=== PATIENT | female | born 1985 | race Caucasian/White ===

== ENCOUNTER → 2020-08-04 15:16 | Outpatient (ROUT) | payer MEDICAID, SELFPAY | PROVIDERS: Visit Provider Dermatology | DX: L02.424 Furuncle of left upper limb (principal) | CPT/HCPCS: 87070; 87075; 87205 ==

== ENCOUNTER 2021-09-26 14:44 | Emergency (ER) | payer MEDICAID, SELFPAY ==
[2021-09-26 14:54] VITALS: O2SAT 100
[2021-09-26 14:55] VITALS: BP 105/59; PULSE 72; RESP 18; O2SAT 99
[2021-09-26 15:00] VITALS: BP 110/67; PULSE 71; RESP 18; O2SAT 99
[2021-09-26 15:01] VITALS: BP 105/59; PULSE 68; RESP 18; TEMP 36.4; O2SAT 100; BMI 21.9
--- NOTE | 2021-09-26 15:08 | ED.URI ---
HPI - URI/Sore Throat General Chief Complaint: Upper Respiratory Symptoms Stated Complaint: cant swallow home test says covid+,ears hurt Time Seen by Provider: 09/26/21 14:57 Source: patient Mode of arrival: Ambulatory History of Present Illness HPI Narrative: 36-year-old female nonsmoker with noncontributory medical history presents with 5-7 days of various upper respiratory symptoms including nasal congestion, bilateral ear pain, sore throat and difficulty swallowing. She had a headache for a few days leading into this but that has since resolved. She denies much in way of cough and has no shortness of breath. She denies any chest pain. She has no GI symptoms such as nausea, vomiting or diarrhea. She took a home COVID test and was found to be positive. She is not immunized. Review of Systems Review of Systems Narrative: GENERAL: see HPI HEENT: see HPI RESPIRATORY: Denies dyspnea, cough, wheezing, hemoptysis, sputum. CARDIOVASCULAR: Denies chest pain, palpitations, orthopnea, edema, GASTROINTESTINAL: Denies nausea, vomiting, abdominal pain, diarrhea, constipation, melena. : Denies dysuria, frequency, incontinence, hematuria, urinary retention. MUSCULOSKELETAL: denies weakness, joint pain, or bony pain SKIN: Denies rash, skin lesions, or other NEUROLOGIC: Denies weakness, headache, numbness, change in speech, confusion, seizures, incoordination. PSYCHIATRIC: No concerning psychosocial issues. 12 point review of systems is negative except for those stated above Patient History Social History Smoking Status: Never smoker Smoking Status: Never smoker Substance Use Type: does not use Exam Narrative Exam Narrative: GENERAL: [36] year old patient appears stated age. Well-developed patient, in mild distress. HEAD: Atraumatic. Normocephalic. EYES: Pupils equal round and reactive. Extraocular motions intact. No scleral icterus. No injection or drainage. ENT: Nose without bleeding, purulent drainage. Clear posterior pharyngeal drainage, no tonsillar edema or exudate. Airway patent. NECK: Trachea midline. Non tender CARDIOVASCULAR: Regular rate and rhythm without murmurs, gallops, or rubs. RESPIRATORY: Clear to auscultation. Breath sounds equal bilaterally. No wheezes, rales, or rhonchi. GASTROINTESTINAL: Abdomen soft, non-tender, nondistended. EXTREMITIES: No edema or joint tenderness. BACK: Nontender without deformity or crepitance. No flank tenderness. NEURO: AOx3. SKIN: No rash or erythema of visible areas Initial Vital Signs Initial Vital Signs: Vital Signs Pulse Oximetry 100 09/26/21 14:54 Course Orders Ordered: Discontinued Medications Ketorolac Tromethamine (Ketorolac 30 Mg/Ml Vial) 30 mg IM NOW ONE Stop: 09/26/21 15:09 Last Admin: 09/26/21 15:19 Dose: 30 mg Documented By: SB Vital Signs Vital signs: Vital Signs - 8 hr 09/26/21 15:01 Temperature 97.6 F Pulse Rate 68 Respiratory Rate 18 Blood Pressure 105/59 L Pulse Oximetry 100 Oxygen Delivery Method Room Air MDM - URI/Sore Throat Lab Data Labs: Point of Care Testing Rapid Strep A Negative MDM Narrative Medical decision making narrative: Patient presents with 5-7 days of various upper respiratory symptoms and a positive COVID test. Chief complaint is of difficulty swallowing. She has moist mucous membranes, very reassuring vital signs and good skin turgor, there is no indication that she is significantly dehydrated. She has no difficulty breathing, use of accessory muscles or hypoxemia. Rapid strep obtained which is negative, will hold off on any antibiotics given low suspicion, until culture results. No indication for further workup. Patient given return precautions and questions answered to her apparent satisfaction Discharge Plan Departure Patient Disposition: Home Clinical Impression: COVID-19 Instructions: Coronavirus Disease 2019 Activity Restrictions/Additional Instructions: *You have been diagnosed with [ COVID-19] Your sore throat is most likely a consequence of COVID, your strep test was negative and there is currently no indication for antibiotics. We have obtained a culture to check for other possible bacterial infections, the results of this test take a few days and we will call if any changes are needed. *What to do: ?* per recommendations from the CDC and the [facility] Department of Health ?* stay home except to get medical care. ?Restrict activities outside your home, except for getting medical care. ?Do not go to work, school, or public areas. ?Avoid using public transportation, ride sharing, or taxis. ?* separate yourself from other people in your home. ?* call ahead before visiting your doctor ?* Wear a facemask ?* Cover your coughs and sneezes ?* Clean your hands often ?* Avoid sharing household items ?* Clean all high-touch services every day ?* Monitor your symptoms and seek prompt medical attention if your illness is worsening, particularly with difficulty in breathing. You may discontinue your isolation when: ?1. You have been fever-free for at least 24 hours without the use of fever reducing medication, AND ?2. Your symptoms are getting better, AND ?3. At least 5 days have passed since symptoms first appeared ?4. If you have fever, continue to stay home until fever resolves Individuals with laboratory confirmed COVID-19 who have not had any symptoms may discontinue home isolation when at least 5 days have passed since the date of their first COVID-19 diagnostic test and have had no subsequent illness You should notifiy any friends and family that have been in close contact *If up to date on COVID Vaccines, then they do not need to quarantine unless symptoms develop. Get tested on day 5 (or sooner if symptoms develop). Take precautions and watch for symptoms until day 10 *If NOT up to date on COVID Vaccines, then CDC recommends quarantine for at least 5 full days. Wear a well fitted mask at home if you must be around others. If they ?develop symptoms they should get tested. If they remain asymptomatic they should get tested on day 5. They should take precautions and monitor for symptoms until day 10. Visit Report Forms: Patient Portal/API
--- NOTE | 2021-09-26 15:12 | PC.NURSE ---
Pt reports testing positive for COVID on 09/22/21. Unvaccinated for COVID.
[2021-09-26] MEDS: KETOROLAC 30 MG/ML VIAL IM (15:19)
[2021-09-26 15:29] VITALS: BP 116/60; PULSE 60; RESP 18; O2SAT 99
== END 2021-09-26 15:28 | disposition home or self-care (01) ==
PROVIDERS: Emergency Provider Emergency Medicine
DX: U07.1 COVID-19 (principal)
CPT/HCPCS: 87070; 87880; 96372; 99283; J1885

== ENCOUNTER 2023-08-31 14:33 | Observation (INO) | payer MEDICAID, OTHER, SELFPAY ==
[2023-08-31] VITALS (11 sets, daily range): BP systolic 92–115; BP diastolic 47–66; PULSE 72–81; RESP 18–26; TEMP 36.5–37.1; O2SAT 97–100; BMI 23.6
--- NOTE | 2023-08-31 14:51 | DI.RAD.S_ITS ---
PROCEDURE: XR CHEST 1V INDICATIONS: Chest pain TECHNIQUE: One view of the chest was acquired. COMPARISON: None. FINDINGS: Surgical changes and devices: None. Lungs and pleura: Lungs are clear. No pleural effusions or pneumothorax. Mediastinum: Mediastinal contours appear normal. Heart size is normal. Bones and chest wall: No suspicious bony lesions. Overlying soft tissues appear unremarkable. IMPRESSION: No acute cardiopulmonary abnormality is seen. Dictated by: Michael Mai M.D. on 08/31/2023 at 16:09 Approved by: Michael Mai M.D. on 08/31/2023 at 16:09
[2023-08-31 15:10] LABS: Add Manual Diff / Slide Review NO; Basophils Absolute Auto 100 /uL (0-100); Basophils Percent Auto 0.6 % (0-2); Eosinophils Absolute Auto 200 /uL (0-450); Eosinophils Percent Auto 2.3 % (2-4); Hematocrit 37.2 % (36-46); Hemoglobin 12.7 g/dL (12.0-16.0); Lymphocytes Absolute Auto 1900 /uL (1100-4500); Lymphocytes Percent Auto 19.4 % (25-40); Mean Corpuscular HGB Conc 34.2 % (30-36); Mean Corpuscular Hemoglobin 30.5 PG (26-34); Mean Corpuscular Volume 89.1 fL (80-100); Monocytes Absolute Auto 1200 /uL (0-900); Monocytes Percent Auto 12.7 % (3-14); Neutrophils Absolute Auto 6300 /uL (1500-7000); Platelet Count 231 X10^3/uL (150-400); Red Blood Cell Count 4.18 X10^6/uL (4.0-5.2); Red Cell Distribution Width 12.9 % (11.6-14.8); White Blood Cell Count 9.6 X10^3/uL (4.5-11.0)
--- NOTE | 2023-08-31 15:11 | ED_ITS ---
HPI - General Adult General Chief complaint: Abdominal Pain Stated complaint: Mid sternum pain Time Seen by Provider: 08/31/23 14:50 Source: patient Mode of arrival: Ambulatory History of Present Illness HPI narrative: 38-year-old female who has had a prior appendectomy he was here for evaluation of 3 days of epigastric abdominal pain. States her symptoms started on Tuesday after an episode of vomiting and which led to diarrhea. Her nausea and vomiting have improved although she still continues to have discomfort. It is in the epigastric region and right upper quadrant. No shortness of breath. She describes the pain is behind her sternum. Not improved with any of the things she is tried at home. Never had symptoms like this in the past. Related Data Allergies Allergy/AdvReac Type Severity Reaction Status Date / Time No Known Drug Allergies Allergy Verified 08/31/23 14:38 Review of Systems Review of Systems Narrative: See HPI Patient History Social History Smoking Status: Current every day smoker Smoking Status: Current every day smoker tobacco type: vaping Substance Use Type: does not use Exam Initial Vital Signs Initial Vital Signs: Vital Signs Temperature 97.7 F 08/31/23 14:38 Pulse Rate 78 08/31/23 14:38 Respiratory Rate 18 08/31/23 14:38 Blood Pressure 92/47 L 08/31/23 14:38 Pulse Oximetry 100 08/31/23 14:38 Oxygen Delivery Method Room Air 08/31/23 14:38 HENMT Head: normal to inspection and normocephalic Resp Effort & Inspection: normal respiratory effort Auscultation: clear to auscultation bilaterally Cardio Rate: regular rate Rhythm: regular rhythm GI Inspection: normal to inspection and non-distended Palpation: soft, No firm, No guarding and tender (Right upper quadrant) Back/Spine/Pelvis Back: No CVA tenderness Skin General: no rashes or lesions noted Neuro General: patient alert and patient awake Course Orders Ordered: ED Orders 08/31/23 14:43 Urine Culture Stat Urine Microscopic Stat 08/31/23 14:51 XR chest 1V Stat EKG-12 Lead Stat 08/31/23 15:00 Complete Blood Count AUTO DIFF Stat Comprehensive Metabolic Panel Stat Lipase Stat 08/31/23 15:11 US abdomen limited Stat Morphine Sulfate (Morphine 2 Mg/Ml Inj) 2 mg IV Q4HR PRN PRN Reason: Pain, Mild (1-3) Ondansetron HCl (Ondansetron 4 Mg/2 Ml Inj) 4 mg IV Q4HR PRN PRN Reason: Nausea And Vomiting Discontinued Medications Piperacillin Sod/Tazobactam (Sod 4.5 gm/ Sodium Chloride) 100 mls @ 200 mls/hr IV NOW ONE Stop: 08/31/23 17:38 Pantoprazole Sodium (Pantoprazole 40 Mg Vial) 40 mg IV NOW ONE Stop: 08/31/23 14:52 Last Admin: 08/31/23 15:21 Dose: 40 mg Documented By: THOMAS Vital Signs Vital signs: Vital Signs - 8 hr 08/31/23 14:38 08/31/23 15:08 08/31/23 15:09 Temperature 97.7 F Pulse Rate 78 75 81 Respiratory Rate 18 Blood Pressure 92/47 L Pulse Oximetry 100 100 100 Oxygen Delivery Method Room Air 08/31/23 15:09 08/31/23 15:30 08/31/23 15:30 Temperature Pulse Rate 74 Respiratory Rate 25 H Blood Pressure 115/55 L 99/55 L Pulse Oximetry 97 Oxygen Delivery Method 08/31/23 16:00 08/31/23 16:00 08/31/23 16:30 Temperature Pulse Rate 74 72 Respiratory Rate Blood Pressure 98/66 Pulse Oximetry 100 100 Oxygen Delivery Method 08/31/23 16:30 08/31/23 16:45 08/31/23 17:00 Temperature Pulse Rate 73 76 Respiratory Rate 26 H 18 Blood Pressure 97/62 96/51 L Pulse Oximetry 100 100 Oxygen Delivery Method Room Air Medical Decision Making Lab Data Lab results reviewed: Yes I reviewed the patient's lab results. 08/31/23 15:00 08/31/23 15:00 Labs: Lab Results 08/31/23 08/31/23 Range/Units 14:43 15:00 WBC 9.6 (4.5-11.0) X10^3/uL RBC 4.18 (4.0-5.2) X10^6/uL Hgb 12.7 (12.0-16.0) g/dL Hct 37.2 (36-46) % MCV 89.1 (80-100) fL MCH 30.5 (26-34) PG MCHC 34.2 (30-36) % RDW 12.9 (11.6-14.8) % Plt Count 231 (150-400) X10^3/uL Neut % (Auto) 65.0 (50-75) % Lymph % (Auto) 19.4 L (25-40) % [place] % (Auto) 12.7 (3-14) % Eos % (Auto) 2.3 (2-4) % Baso % (Auto) 0.6 (0-2) % Neut # (Auto) 6300 (0919-8499) /uL Lymph # (Auto) 1900 (5208-9533) /uL [place] # (Auto) 1200 H (0-900) /uL Eos # (Auto) 200 (0-450) /uL Baso # (Auto) 100 (0-100) /uL Sodium 136 L (137-145) mmol/L Potassium 3.5 (3.4-5.1) mmol/L Chloride 106 (98-107) mmol/L Carbon Dioxide 27 (22-32) mmol/L BUN 7 (7-17) mg/dL Creatinine 0.75 (0.52-1.04) mg/dL Estimated GFR > 60 (>60) mL/min BUN/Creatinine Ratio 9.3 (6-22) Glucose 77 (70-100) mg/dL Calcium 8.3 L (8.4-10.2) mg/dL Total Bilirubin 1.4 H (0.2-1.3) mg/dL AST 15 (14-36) IU/L ALT 8 (<35) IU/L Alkaline Phosphatase 56 (38-126) U/L Total Protein 6.5 (6.3-8.2) g/dL Albumin 3.9 (3.5-5.0) g/dL Globulin 2.6 (1.7-4.1) g/dL Albumin/Globulin Ratio 1.5 (1.0-2.8) Lipase 24 (23-300) U/L Urine RBC 0-1/hpf (0-5/HPF) Urine WBC 1-5/hpf (0-5/HPF) Ur Squamous Epith Cells >30 /hpf H (0-5/HPF) Urine Bacteria Moderate (10-30) H (None) Urine Mucus 2+ H (Negative) Ur Culture Indicated? Specimen cultured Vol Urine Centrifuged 10ml (spun) Point of Care Testing Test Results Negative Urine Dip Bedside Urine Glucose Negative Bedside Urine Bilirubin - Negative Bedside Urine Ketone +/- 5 Urine Specific [place] 1.020 Bedside Urine Occult Blood +/- Bedside Urine pH 6.0 Bedside Urine Protein +/- 15 Bedside Urine Urobilinogen - Negative Bedside Urine Nitrite - Negative Bedside Urine Leukocytes +/- 15 Esterase Point of care testing: Point of Care Testing Test Results Negative Urine Dip Bedside Urine Glucose Negative Bedside Urine Bilirubin - Negative Bedside Urine Ketone +/- 5 Urine Specific [place] 1.020 Bedside Urine Occult Blood +/- Bedside Urine pH 6.0 Bedside Urine Protein +/- 15 Bedside Urine Urobilinogen - Negative Bedside Urine Nitrite - Negative Bedside Urine Leukocytes +/- 15 Esterase Imaging Data Chest x-ray: Radiologist's Impression: PROCEDURE: XR CHEST 1V INDICATIONS: Chest pain TECHNIQUE: One view of the chest was acquired. COMPARISON: None. FINDINGS: Surgical changes and devices: None. Lungs and pleura: Lungs are clear. No pleural effusions or pneumothorax. Mediastinum: Mediastinal contours appear normal. Heart size is normal. Bones and chest wall: No suspicious bony lesions. Overlying soft tissues appear unremarkable. IMPRESSION: No acute cardiopulmonary abnormality is seen. US - abdomen: Radiologist's Impression: PROCEDURE: US ABDOMEN LIMITED INDICATIONS: RUQ pain eval for GB pathology TECHNIQUE: Real-time scanning was performed of the abdominal and retroperitoneal organs, with image documentation. COMPARISON: None. FINDINGS: Liver: Liver is normal in size and homogeneous in echotexture. Gallbladder: The gallbladder contains a 1.0 cm stone near the gallbladder neck. Multiple layering tiny gallstones are seen near the gallbladder fundus. There is moderate wall thickening measuring up to 1.7 cm in thickness. Pericholecystic fluid is identified. There is an abnormal sonographic Pichardo sign. Biliary ducts: Intrahepatic bile ducts are non-dilated. Extrahepatic bile duct caliber measures 3 mm. Normal is 6-7 mm or less in diameter, or 10 mm or less post-cholecystectomy. Pancreas: Visualized portions of the pancreas are sonographically normal. Miscellaneous: No free abdominal fluid. IMPRESSION: Cholelithiasis with sonographic findings of acute cholecystitis. ECG Data Attestation: I personally reviewed and interpreted this ECG as follows: Interpretation: Sinus rhythm Ventricular rate is 73 Normal axis Normal QRS Normal QTC No ST T wave changes MDM Narrative Medical decision making narrative: Normal LFTs. Slight increase in bilirubin but normal lipase. Ultrasound shows evidence of an acute cholecystitis. I did discuss the case with Dr. Duffy on- call for General surgery. Patient was started on antibiotics. Will admit to the hospital for surgical intervention. Discussed this with the patient. Patient expressed understanding and agreement with plan. Discharge Plan Departure Patient Disposition: Admitted as Observation Clinical Impression: Acute cholecystitis Admit Date/Time: 08/31/23 17:37 Admit Provider: Long Duffy
[2023-08-31 15:21] LABS: Bacteria Urine Moderate (10-30); Culture Indicated Urine Specimen Cultured; Mucus Urine 2+ (Negative); RBC Urine 0-1/HPF (0-5/HPF); Squamous Epithelial Cell Urine >30 /HPF (0-5/HPF); Urine Volume 10mL (spun); WBC Urine 1-5/HPF (0-5/HPF)
[2023-08-31] MEDS: PANTOPRAZOLE 40 MG VIAL IV (15:21)
[2023-08-31 15:27] LABS: Alanine Aminotransferase 8 IU/L (<35); Albumin 3.9 g/dL (3.5-5.0); Albumin Globulin Ratio 1.5 (1.0-2.8); Alkaline Phosphatase 56 U/L (38-126); Aspartate Aminotransferase 15 IU/L (14-36); BUN Creatinine Ratio 9.3 (6-22); Bilirubin Total 1.4 mg/dL (0.2-1.3); Blood Urea Nitrogen 7 mg/dL (7-17); Calcium 8.3 mg/dL (8.4-10.2); Carbon Dioxide 27 mmol/L (22-32); Chloride 106 mmol/L (98-107); Estimated Glomerular Filt Rate > 60 mL/min (>60); Globulin 2.6 g/dL (1.7-4.1); Glucose 77 mg/dL (70-100); HEMOLYSIS < 15 (0-50); Potassium 3.5 mmol/L (3.4-5.1); Sodium 136 mmol/L (137-145); Total Protein 6.5 g/dL (6.3-8.2)
[2023-08-31 15:28] LABS: Lipase 24 U/L (23-300)
[2023-08-31] MEDS: PIPERACILLIN/TAZO 4.5 GM in SODIUM CHLORIDE 0.9% 100 ML IV (17:54)
[2023-08-31] MEDS: HYDROCODONE/ACET 5/325 TABLET 1 TAB PO (20:09)
[2023-08-31] MEDS: LACTATED RINGERS 1,000 ML 100 ML IV (20:10)
[2023-09-01] VITALS (12 sets, daily range): BP systolic 85–127; BP diastolic 42–70; PULSE 60–93; RESP 14–22; TEMP 36.3–36.9; O2SAT 96–100; BMI 23.6
--- NOTE | 2023-09-01 | PATH_ITS ---
[facility] Accession Number: [id number] No. of containers..01 Tissue . 01 Material submitted: . gallbladder - GALLBLADDER . 01 Diagnosis: GALLBLADDER, CHOLECYSTECTOMY: Acute and mild chronic calculous cholecystitis with mucosal ulcerations and associated reactive/reparative changes. Negative for dysplasia or malignancy. [facility] 09/06/2023 1107 Local . 01 Electronically signed: . Hiwot Youngblood MD, Pathologist NPI- [id number] . 01 Gross description: . Received in formalin with two patient identifiers and gallbladder on the requisition, and consists of a 10.5 x 3.5 x 3.2 cm unopened gallbladder. The serosal surface is diffusely hyperemic smooth shining and glistening. The liver bed is inked blue, the cystic duct is inked black. The cystic duct is obstructed by a 0.9 x 0.8 x 0.8 cm black bosselated gallstone. A gallbladder wall is diffusely thickened and fibrotic, and ranges from 0.2 cm up to 0.6 cm in thickness. The mucosa is diffusely hemorrhage rivera and coarsely granular. [employer] sections are submitted in cassettes A1 and A2. ([id number]) /MRV 09/02/2023 1322 Local . 01 Pathologist provided ICD-10: K81.1 . 01 CPT . 501719 Specimen Comment: A courtesy copy of this report has been sent to [phone] Performed at: [address] [id number] MD Jon Stafford MD Phone: [phone]
[2023-09-01] MEDS: LACTATED RINGERS 1,000 ML 100 ML IV ×2 (05:41→13:51)
[2023-09-01] MEDS: SCOPOLAMINE 1 PATCH TOP (07:43)
--- NOTE | 2023-09-01 07:44 | SUR.OPER ---
Supine on padded OR bed, head on pillow, safety belt at thigh, both arms secured on padded arm boards <90 degrees abduction. Legs uncrossed. Padded footboard in place. Tape over blanket to secure lower legs.
--- NOTE | 2023-09-01 07:47 | SUR.HOLD ---
0730 - DR KNIGHT INFORMS SURGERY THAT HE WILL BE RUNNING LATE
--- NOTE | 2023-09-01 07:56 | PM.HP.1 ---
History of Present Illness History of Present Illness Date Patient Seen: 09/01/23 Time Patient Seen: 07:56 Chief complaint: Mid sternum pain Narrative: Paul is a 38-year-old woman who presented to the ER with several days of right upper quadrant and epigastric abdominal pain. An ultrasound showed gallstones and suggestion of acute cholecystitis. Her labs were normal. She did receive a dose of Zosyn in the ER. [facility] Social History household members: children Smoking Status: Former smoker alcohol intake: never Meds Home Medications and Allergies Home Medications Medication Instructions Recorded Confirmed Type dextroamphetamine-amphetamine 10 0.5 tab PO BID 08/31/23 08/31/23 History mg tablet dextroamphetamine-amphetamine ER 1 cap PO QAM 08/31/23 08/31/23 History 25 mg 24hr capsule,extend release hydroxyzine HCl 10 mg tablet 10 mg PO BEDTIME PRN Anxiety 08/31/23 08/31/23 History ibuprofen 200 mg tablet 400 mg PO Q6H PRN Pain (Scale 08/31/23 08/31/23 History Score 1-3) propranolol 10 mg tablet 20 mg PO BID PRN Anxiety 08/31/23 08/31/23 History Allergies Allergy/AdvReac Type Severity Reaction Status Date / Time No Known Drug Allergies Allergy Verified 09/01/23 07:43 Exam Vital Signs (past 8 hours): Oxygen Delivery Method Room Air Oxygen Flow Rate 0 Narrative Exam Narrative: Abdomen is soft, tender to palpation in the right upper quadrant Objective Labs 08/31/23 15:00 08/31/23 15:00 Labs: Laboratory Results - last 24 hr 08/31/23 08/31/23 14:43 15:00 WBC 9.6 RBC 4.18 Hgb 12.7 Hct 37.2 MCV 89.1 MCH 30.5 MCHC 34.2 RDW 12.9 Plt Count 231 Neut % (Auto) 65.0 Lymph % (Auto) 19.4 L [place] % (Auto) 12.7 Eos % (Auto) 2.3 Baso % (Auto) 0.6 Neut # (Auto) 6300 Lymph # (Auto) 1900 [place] # (Auto) 1200 H Eos # (Auto) 200 Baso # (Auto) 100 Sodium 136 L Potassium 3.5 Chloride 106 Carbon Dioxide 27 BUN 7 Creatinine 0.75 Estimated GFR > 60 BUN/Creatinine Ratio 9.3 Glucose 77 Calcium 8.3 L Total Bilirubin 1.4 H AST 15 ALT 8 Alkaline Phosphatase 56 Total Protein 6.5 Albumin 3.9 Globulin 2.6 Albumin/Globulin Ratio 1.5 Lipase 24 Urine RBC 0-1/hpf Urine WBC 1-5/hpf Ur Squamous Epith Cells >30 /hpf H Urine Bacteria Moderate (10-30) H Urine Mucus 2+ H Ur Culture Indicated? Specimen cultured Vol Urine Centrifuged 10ml (spun) Assessment & Plan Assessment and plan (1) Acute cholecystitis: Status: Acute Plan 38-year-old woman with symptomatic cholelithiasis versus acute cholecystitis. We reviewed the risks and benefits of laparoscopic cholecystectomy and she would like to proceed. Quality VTE Deep Vein Thrombosis/Pulmonary Embolism Present on Admission: Yes
[2023-09-01] MEDS: PIPERACILLIN/TAZO 3.375 GM in SODIUM CHLORIDE 0.9% 100 ML IV (08:30)
[2023-09-01] MEDS: BUPIVACAINE 0.5% W/ EPI (PF) 10 ML VIAL 30 ML INJ (08:53)
--- NOTE | 2023-09-01 09:51 | PM.OP.1 ---
Operative Date/Time/Diagnoses Date of procedure: 09/01/23 Time of procedure: 09:51 Pre-op diagnosis: Acute cholecystitis Post-op diagnosis: same Procedure & Clinicians Procedure: Laparoscopic cholecystectomy Same procedure as scheduled: Yes Surgeon: Long Duffy Click Yes if Unassisted: Yes Anesthesia Type: General Operative Notes Procedure in detail: The patient was given preoperative antibiotics. The patient was brought to the operating room and placed on the table in the supine position. General endotracheal anesthesia was induced. The abdomen was prepped and draped. A time-out was performed. We made a 1 cm infraumbilical incision. We dissected down to the base of the umbilical stalk using cautery. We grasped the umbilical stalk with a Susana clamp to elevate the abdominal wall. We scored the fascia in the midline with cautery. We pierced the peritoneum with a Peon clamp. The Master port was placed and the abdomen was insufflated to 15 mmHg. A 5 mm 30 degree laparoscopic was inserted. There was no evidence of any injury from the entry. Next, we placed 5 mm ports in the subxiphoid position and right upper quadrant at the midclavicular line and anterior axillary line. The patient was then positioned in reverse Trendelenburg and the table was tilted to the left. The gallbladder was grasped at the dome and retracted cephalad. It was acutely inflamed with a marked edema plane. We dissected the cystic structures with a combination of hook cautery and blunt dissection. We obtained a critical view. We placed clips on the cystic duct and artery and divided the cystic duct and artery sharply between the clips. The gallbladder was then dissected off the liver and placed in a specimen retrieval bag. We irrigated the right upper quadrant and all the aspirate returned clear. We then removed the 5 mm ports under direct vision we removed the Master port. We then injected some local into the fascia and closed the fascia with 2 interrupted 0 Vicryl sutures. The skin incisions were closed with 4-0 Monocryl and Steri-Strips were applied. Band-Aids were applied over the Steri-Strips. EBL: 30 mL Specimen: Gallbladder and contents Post-operative Condition: stable Disposition: PACU
[2023-09-01] MEDS: METOCLOPRAMIDE 10 MG/2 ML INJ IV (10:07)
[2023-09-01] MEDS: hydrOXYzine 50 MG/ML INJ 25 MG IM (10:07)
[2023-09-01] MEDS: ONDANSETRON 4 MG/2 ML INJ IV (10:07)
--- NOTE | 2023-09-01 11:55 | CM.DANOTE ---
Initial DCP Assessment Note Pt is a 38 yo female, resident of [place], presents with days of right upper quadrant and epigastric abdominal pain.; admitted for lap armin by Dr Duffy. PCP: Dr. Paty Savage Payer: Jeffery/LAZARO Reviewed chart, pt discussed in multidisciplinary rounds this morning. Met w/patient briefly at bedside; patient just came back from the OR. Patient lives with family, mom is looking after 10 yo daughter while patient admitted. Family to assist patient throughout her recovery at home. Of note; chart review shows Jeanmarie Norris, P [phone], patient did not mention a spouse, possibly (?) No barriers identified at this time to patient's safe discharge home w/family to assist; close outpatient f/u recommended. CM team will plan to follow clinical course closely in case any DC needs or concerns arise. DELMA Urias Discharge Planning/Care Management CM Discharge Assessment Start: 09/01/23 11:49 Freq: Status: Active Protocol: Document 09/01/23 11:49 DANUTA (Rec: 09/01/23 11:52 DANUTA [id number]) Discharge Planning Assessment Assigned [employer] DELMA rCane DPOA/Assigned Designee Name Kenna Salcedo Contact Information Advance Directives? No History Provided By Patient,Medical Record Prior Living Arrangements House Household Members children Type of transporation used prior to Drives own vehicle admit Independent with ADL's Yes Is patient alert and oriented? Yes Barriers to Discharge No Discharge Plan Home Transportation Arrangement Family Referrals Initiated None needed
[2023-09-01] MEDS: HYDROCODONE/ACET 5/325 TABLET 1 TAB PO (16:54)
[2023-09-01] MEDS: HYDROMORPHONE 0.5 MG INJ IV (17:47)
[2023-09-01 17:48] LABS: Add Manual Diff / Slide Review NO; Basophils Absolute Auto 0 /uL (0-100); Basophils Percent Auto 0.2 % (0-2); Eosinophils Absolute Auto 0 /uL (0-450); Hematocrit 34.3 % (36-46); Hemoglobin 11.6 g/dL (12.0-16.0); Lymphocytes Absolute Auto 500 /uL (1100-4500); Mean Corpuscular HGB Conc 33.9 % (30-36); Mean Corpuscular Hemoglobin 30.7 PG (26-34); Mean Corpuscular Volume 90.4 fL (80-100); Monocytes Absolute Auto 100 /uL (0-900); Monocytes Percent Auto 2.6 % (3-14); Neutrophils Absolute Auto 5000 /uL (1500-7000); Neutrophils Percent Auto 89.2 % (50-75); Platelet Count 219 X10^3/uL (150-400); Red Blood Cell Count 3.79 X10^6/uL (4.0-5.2); Red Cell Distribution Width 12.9 % (11.6-14.8); White Blood Cell Count 5.7 X10^3/uL (4.5-11.0)
[2023-09-01] MEDS: SODIUM CHLORIDE 0.9% 1,000 ML 1000 ML IV ×2 (17:57→22:41)
--- NOTE | 2023-09-01 18:52 | PC.NURSE ---
Dayshift: Pt experienced dizziness and orthostatic hypotension upon sitting and ambulating. Notified MD Duffy. CBC and 1L bolus NS ordered. IV dialudid given x1 for breakthrough pain.
[2023-09-01 23:05] LABS: Add Manual Diff / Slide Review NO; Basophils Absolute Auto 0 /uL (0-100); Basophils Percent Auto 0.1 % (0-2); Eosinophils Absolute Auto 0 /uL (0-450); Hematocrit 30.9 % (36-46); Hemoglobin 10.6 g/dL (12.0-16.0); Lymphocytes Absolute Auto 700 /uL (1100-4500); Lymphocytes Percent Auto 10.2 % (25-40); Mean Corpuscular HGB Conc 34.4 % (30-36); Mean Corpuscular Hemoglobin 30.9 PG (26-34); Mean Corpuscular Volume 89.8 fL (80-100); Monocytes Absolute Auto 400 /uL (0-900); Monocytes Percent Auto 5.6 % (3-14); Neutrophils Absolute Auto 5500 /uL (1500-7000); Neutrophils Percent Auto 84.1 % (50-75); Platelet Count 212 X10^3/uL (150-400); Red Blood Cell Count 3.44 X10^6/uL (4.0-5.2); Red Cell Distribution Width 12.7 % (11.6-14.8); White Blood Cell Count 6.6 X10^3/uL (4.5-11.0)
[2023-09-02] MEDS: LACTATED RINGERS 1,000 ML 100 ML IV (01:09)
[2023-09-02 01:17] VITALS: BP 101/61
[2023-09-02] MEDS: HYDROCODONE/ACET 5/325 TABLET 1 TAB PO ×2 (05:23→08:22)
[2023-09-02 06:18] VITALS: BP 113/59; PULSE 60; RESP 16; TEMP 36.4; O2SAT 94
[2023-09-02 08:38] VITALS: BP 101/55; PULSE 71; RESP 18; TEMP 36.6; O2SAT 97
--- NOTE | 2023-09-02 10:24 | PC.NURSE ---
Patient is A&OX4 this a.m. VSS, afebrile on RA. She tolerates breakfast well and is able to ambulate to the bathroom. Initially she reports abdominal pain 11/11 but reports good control with prn hydrocodone x1 tab. Incisions to abdomen C/D/I, bandaids. She is cleared medically for discharge today and verbalizes understanding of site care, medications, s/sx of infection as well as follow up in 2 weeks with MD Duffy. She is escorted by RN via w/ch to private vehicle with her mother at 10 a.m. for discharge home with all of her belongings.
== END 2023-09-02 10:00 | disposition home or self-care (01) ==
LOC: ED 17:38 → AC 17:38
PROVIDERS: Surgery; Admitting Provider Surgery; Emergency Provider Emergency Medicine; Referring Provider Emergency Medicine; Visit Provider Surgery
PROC: 0FT44ZZ Resection of Gallbladder, Percutaneous Endoscopic Approach (ICD-10-PCS; CPT 47562; principal; 2023-09-01 07:45)
DX: K80.00 Calculus of gallbladder with acute cholecystitis without obstruction (principal)
CPT/HCPCS: 47562; 36415; 71045; 76705; 80053; 81003; 81015; 81025; 83690; 85025; 87086; 93005; 96361; 96365; 96372; 96375; 99222; 99284; G0378; C9113; J1100; J1170; J1885; J2250; J2405; J2543; J2704; J2765; J3010; J3410